=== PATIENT | male | born 1960 | race Caucasian/White ===

== ENCOUNTER 2018-01-15 14:15 | Emergency (ER) | payer OTHER ==
[~2018-01-15] VITALS: Ht 175.3 cm; Wt 95.7 kg
--- OUTSIDE RECORDS SUMMARY | ~2018-01-15 | XMS | Clinical Summary ---
Demographics + + + | Address | [address] | | | [place] [address] | + + + | Home Phone | | + + + | Preferred Language | Unknown | + + + | Marital Status | | + + + | Mandaeism Affiliation | Unknown | + + + | Race | Unknown | + + + | Ethnic Group | Unknown | + + + Author + + + | Author | [facility] | + + + | Organization | [facility] | + + + | Address | Unknown | + + + | Phone | Unavailable | + + + Support + + +---------+ + | Name | Relationship | Address | Phone | + + +---------+ + | Emily Manzano | ECON | Unknown | | + + +---------+ + Care Team Providers + +------+ + | Care After School Counselor Name | Role | Phone | + +------+ + | Golden Angela MD | PP | | + +------+ + Allergies Not on File Current Medications Not on file Active Problems Not on file Social History + +-------+ +--------+------+ | Tobacco Use | Types | Packs/Day | Years | Date | | | | | Used | | + +-------+ +--------+------+ | Never Assessed | | | | | + +-------+ +--------+------+ + + + | Sex Assigned at | Date Recorded | | | | + + + | Not on file | | + + + Plan of Treatment +--------+ + + + + | Date | Type | Specialty | Care Team | Description | +--------+ + + + + | 03/20/ | Initial | | Kim Rivas, | | | 2017 | consult | | MD Rosy Toledo | | | | | | [address] [place], | | | | | | [place] [address] | | | | | | [phone] | | | | | | | | +--------+ + + + + + + + + + | Health Maintenance | Due Date | Last Done | Comments | + + + + + | Vaccine: | | | | | Dtap/Tdap/Td (1 - | 9 | | | | Tdap) | | | | + + + + + | Colon Cancer | | | | | Screening | 0 | | | | (Colonoscopy) | | | | + + + + + | Vaccine: Influenza | | | | | (#1) | 8 | | | + + + + + Results Not on filefrom Last 3 Months Insurance + +--------+ +------+-------+---------+ | Payer | Benefi | Subscriber | Type | Phone | Address | | | t Plan | ID | | | | | | / | | | | | | | Group | | | | | + +--------+ +------+-------+---------+ | [employer] - | FIRST | [id number] | | | | | COVENTRY | HEALTH | 01 | | | | | | - | | | | | | | PACIFI | | | | | | | CSOURC | | | | | | | E | | | | | + +--------+ +------+-------+---------+ + +--------+ +--------+ + + | Guarantor Name | Accoun | Relation to | Date | Phone | Billing Address | | | t Type | Patient | of | | | | | | | | | | + +--------+ +--------+ + + | IVONE MANZANO | Person | Self | [birth year] | Home: | [address], | | | al/Fam | | 1960 | [phone] | [place] [address] | | | jason | | | [phone] | | + +--------+ +--------+ + +"
--- OUTSIDE RECORDS SUMMARY | ~2018-01-15 | XMS | Clinical Summary ---
Demographics + + + | Address | [address] | | | [place] [address] | + + + | Preferred Language | Unknown | + + + | Marital Status | Single | + + + | Baptist Affiliation | Unknown | + + + | Race | Unknown | + + + | Ethnic Group | Other Race | + + + Author + + + | Author | [facility] | + + + | Organization | [facility] | + + + | Address | Unknown | + + + | Phone | Unavailable | + + + Care Team Providers + +------+ + | Care Senior Consulting Manager Name | Role | Phone | + +------+ + PP | Unavailable | + +------+ + Source Comments DARCY is fully live on both [facility] Amb[facility] and [facility] InPatient.[facility] Allergies Not on File Current Medications Not [...] | + + + Plan of Treatment + + + + + | Health Maintenance | Due Date | Last Done | Comments | + + + + + | INFLUENZA VACCINE | | | | | (FLU SHOT) | 8 | | | + + + + + Results Not on filefrom Last 3 Months Insurance + +--------+ +------+ + + | Payer | Benefi | Subscriber | Type | Phone | Address | | | t Plan | ID | | | | | | / | | | | | | | Group | | | | | + +--------+ +------+ + + | [employer] | REGENC | [id number] | PPO | [phone] [address] [address] [place] | | SHIELD | E [employer] | [phone] | | [phone] | [place], [place] | | | | | | | [address] | + +--------+ +------+ + + + +--------+ +--------+-------+ + | Guarantor Name | Accoun | Relation to | Date | Phone | Billing Address | | | t Type | Patient | of | | | | | | | | | | + +--------+ +--------+-------+ + | IVONE MANZANO | Person | Self | [birth year] | [address], | | | al/Alfredo | | 1960 | | [place] [address] | | | jason | | | | | + +--------+ +--------+-------+ +"
--- OUTSIDE RECORDS SUMMARY | ~2018-01-15 | XMS | Clinical Summary ---
Demographics + + + | Address | [address] | | | [place] [address] | + + + | Home Phone | | + + + | Preferred Language | Unknown | + + + | Marital Status | | + + + | Scientologist Affiliation | Unknown | + + + | Race | Unknown | + + + | Ethnic Group | Unknown | + + + Author + + + | Author | [facility] | + + + | Organization | [facility] | + + + | Address | Unknown | + + + | Phone | Unavailable | + + + Support + + +---------+ + | Name | Relationship | Address | Phone | + + +---------+ + | Emily Manzano | ECON | Unknown | | + + +---------+ + Care Team Providers + +------+ + | Care Buffer Chrome Name | Role | Phone | + [...] [place], | | | | | | [place] [address] | | | | | | [phone] | | | | | | | [...] | [employer] - | FIRST | [id number] | | | | | COVENTRY | [...] | | 1960 | [phone] | [place] [address] | | | jason | | | [phone] | | + +--------+ +--------+ + +"
--- OUTSIDE RECORDS SUMMARY | ~2018-01-15 | XMS | Clinical Summary ---
Demographics + + + | Address | [address] | | | [place] [address] | + + + | Preferred Language | Unknown | + + + | Marital Status | Single | + + + | Episcopalian Affiliation | Unknown | + + + [...] Team Providers + +------+ + | Care Brand Marketing Intern Name | Role | Phone | + +------+ + PP | Unavailable | + +------+ + Source Comments DARCY is fully live on both [facility] Ambulatory and [facility] InPatient.[facility] Allergies Not on File Current Medications Not [...] | PPO | [phone] | [address] [address] [place] | | SHIELD | E [employer] | xxx | | [phone] | [place], [place] | | | | | | | [address] | + +--------+ +------+ + + + [...] al/Alfredo | | 1960 | | [place] [address] | | | jason | | | | | + +--------+ +--------+-------+ +"
[2018-01-15] MEDS ORDERED: DICLOFENAC-MIS1 EAC1 PO (14:27)
[2018-01-15] MEDS ORDERED: ATENOLOL50 MG PO (14:27)
[2018-01-15] MEDS ORDERED: AMLODIPINE BESYL5 MG PO (14:27)
[2018-01-15] MEDS ORDERED: ASPIR-TRIN325 MG PO (14:27)
--- NOTE | 2018-01-15 16:50 | EKG ---
[facility] [address] [facility] [place] [address] Signed Atrial fibrillation with rapid ventricular response Abnormal ECG No previous ECGs available Confirmed by AMBER NIEVES MD ([id number]) on 01/15/2018 4:49:53 PM Electronically Signed By: AMBER NIEVES MD 01/15/18 1650 PATIENT NAME: DAVISIVONE WARREN Electrocardiogram DATE OF : 60 PHYSICIAN: AMBER NIEVES MD REPORT #: [id number] REPORT IS CONFIDENTIAL AND NOT TO BE RELEASED WITHOUT AUTHORIZATION
[2018-01-15] MEDS ORDERED: ROBAXIN-750750 MG PO (17:11)
[2018-01-15] MEDS ORDERED: NORCO 5-325 TA1 EACH PO (17:11)
== END 2018-01-15 17:20 | disposition home or self-care (01) ==
LOC: ED 14:15
DX: M54.6 Pain in thoracic spine (principal); M54.5 Low back pain; R07.9 Chest pain, unspecified; I48.91 Unspecified atrial fibrillation; I10 Essential (primary) hypertension; Z79.899 Other long term (current) drug therapy; Z79.82 Long term (current) use of aspirin
CPT/HCPCS: 71045; 71046; 71275; 74174; 80053; 84484; 85025; 93005; 93010; 96374; 96375; 99284; J1170; J1885; Q9967